=== PATIENT | female | born 1995 | race Caucasian/White ===

== ENCOUNTER 2024-03-26 11:34 | Emergency (ER) | payer MEDICAID ==
[~2024-03-26] VITALS: Ht 167.6 cm; Wt 102.3 kg
[2024-03-26 11:45] VITALS: TEMP 98.6
[2024-03-26] MEDS ORDERED: LR 1,000 ML IV ONE (14:15)
[2024-03-26] MEDS ORDERED: Ondansetron 4 MG/2 ML VIAL IV ONE (14:15)
[2024-03-26] MEDS ORDERED: Morphine 4 MG/ML VIAL IV ONE (14:15)
[2024-03-26 14:35] LABS: URINE APPEARANCE CLEAR (CLEAR/HAZY); URINE COLOR YELLOW (YELLOW); URINE PROTEIN(semi-quant) Negative (NEGATIVE)
[2024-03-26 14:36] LABS: URINE BLOOD Negative (NEGATIVE); URINE GLUCOSE Negative (NEGATIVE); URINE KETONE Negative (NEGATIVE); URINE NITRATE Negative (NEGATIVE); URINE UROBILINOGEN 0.2 E.U/dL (0.2-1.0)
[2024-03-26 14:37] LABS: COLLECTION METHOD CLEAN CATCH
[2024-03-26 14:50] LABS: BASO % 0.4 % (0.0-2.0); EOS # 0.2 K/mm3 (0.0-0.7); GRAN # 6.2 K/mm3 (1.4-6.5); GRAN % 60.9 % (42.2-75.2); HEMATOCRIT 41.3 % (37.0-47.0); HEMOGLOBIN 13.3 g/dl (12.5-16.0); LYMPH # 3.1 K/mm3 (1.2-3.4); LYMPH % 30.6 % (20.0-51.0); MEAN CELL VOLUME 82 fl (80.0-100.0); MEAN CORPUSCULAR HEMOGLOBIN 26 pg (27-31); MEAN CORPUSCULAR HGB CONC 32 g/dl (33.0-37.0); MEAN PLATELET VOLUME 8.8 fl (7.4-10.4); MONO # 0.6 K/mm3 (0.1-0.6); MONO % 5.8 % (1.7-9.3); PLATELET COUNT 417 K/mm3 (130-400); RED BLOOD COUNT 5.07 M/mm3 (4.10-5.30); REDCELL DISTRIBUTION WIDTH-CV 15.4 % (11.5-14.5)
[2024-03-26 15:10] LABS: ALBUMIN 3.8 g/dL (3.5-5.0); BILIRUBIN,TOTAL 0.4 mg/dL (0.2-1.2); C-REACTIVE PROTEIN 1.25 mg/dL (0.00-0.50); CALCIUM 9.6 mg/dL (8.4-10.2); CREATININE, serum 0.71 mg/dL (0.57-1.11); POTASSIUM 3.9 mEq/L (3.5-4.5)
[2024-03-26] MEDS ORDERED: HYDROmorphone 0.5 MG/0.5 ML SYRINGE IV ONE (15:45)
[2024-03-26] MEDS ORDERED: Iohexol 300 - 100 ML VIAL IV ONE (15:59)
[2024-03-26] MEDS ORDERED: NS 100 ML IV SCH (16:00)
[2024-03-26] MEDS ORDERED: NORCO 325 MG-51 TAB PO (16:52)
[2024-03-26 17:13] VITALS: BP 113/69; PULSE 64
== END 2024-03-26 17:13 | disposition home or self-care (01) ==
LOC: COL.ER 11:34
PROVIDERS: Family Medicine
DX: N83.209 Unspecified ovarian cyst, unspecified side (principal)
CPT/HCPCS: J1170; J2270; J2405; J7120; Q9967

== ENCOUNTER 2024-06-14 08:17 | Emergency (ER) | payer MEDICAID ==
[~2024-06-14] VITALS: Ht 167.6 cm; Wt 99.1 kg
[~2024-06-14 08:17] MED LIST: NORCO 325 MG-51 TAB PO
[2024-06-14 08:21] VITALS: TEMP 98.1
[2024-06-14] MEDS ORDERED: NS 1,000 ML IV ONE (08:45)
[2024-06-14] MEDS ORDERED: fentaNYL 50 MCG/ML 2 ML VIAL IV ONE ×2 (08:45→10:15)
[2024-06-14] MEDS ORDERED: Ondansetron 4 MG/2 ML VIAL IV ONE ×2 (08:45→13:30)
[2024-06-14 08:55] LABS: BASO % 0.3 % (0.0-2.0); EOS # 0.2 K/mm3 (0.0-0.7); EOS % 1.6 % (0.0-4.0); HEMATOCRIT 47.1 % (37.0-47.0); HEMOGLOBIN 15.4 g/dl (12.5-16.0); LYMPH # 2.6 K/mm3 (1.2-3.4); LYMPH % 20.5 % (20.0-51.0); MEAN CELL VOLUME 83 fl (80.0-100.0); MEAN CORPUSCULAR HEMOGLOBIN 27 pg (27-31); MEAN CORPUSCULAR HGB CONC 33 g/dl (33.0-37.0); MEAN PLATELET VOLUME 9.1 fl (7.4-10.4); MONO # 0.8 K/mm3 (0.1-0.6); MONO % 6.3 % (1.7-9.3); PLATELET COUNT 537 K/mm3 (130-400); RED BLOOD COUNT 5.69 M/mm3 (4.10-5.30); REDCELL DISTRIBUTION WIDTH-CV 15.7 % (11.5-14.5)
[2024-06-14 09:16] LABS: ALBUMIN 4.4 g/dL (3.5-5.0); BILIRUBIN,TOTAL 0.5 mg/dL (0.2-1.2); CALCIUM 10.4 mg/dL (8.4-10.2); CREATININE, serum 0.85 mg/dL (0.57-1.11); TOTAL PROTEIN 9.5 g/dl (6.2-8.1)
[2024-06-14] MEDS ORDERED: Iohexol 300 - 100 ML VIAL IV ONE (09:32)
[2024-06-14] MEDS ORDERED: NS 100 ML IV SCH (09:32)
[2024-06-14 12:41] LABS: COLLECTION METHOD CLEAN CATCH
[2024-06-14 12:46] LABS: URINE APPEARANCE CLEAR (CLEAR/HAZY); URINE BLOOD NEGATIVE (NEGATIVE); URINE COLOR YELLOW (YELLOW); URINE GLUCOSE NEGATIVE (NEGATIVE); URINE KETONE 2+ (NEGATIVE); URINE NITRATE NEGATIVE (NEGATIVE); URINE PROTEIN(semi-quant) TRACE (NEGATIVE); URINE UROBILINOGEN 0.2 E.U/dL (0.2-1.0)
[2024-06-14] MEDS ORDERED: ZOFRAN ODT4 MG PO (13:30)
[2024-06-14] MEDS ORDERED: NORCO 325 MG-51 TAB PO (13:30)
[2024-06-14 13:32] VITALS: BP 109/75; PULSE 77
== END 2024-06-14 13:49 | disposition home or self-care (01) ==
LOC: COL.ER 08:17
PROVIDERS: Family Medicine
DX: R10.31 Right lower quadrant pain (principal)
CPT/HCPCS: J2405; J3010; J7030; Q9967

== ENCOUNTER 2024-07-19 11:17 | Emergency (ER) | payer MEDICAID ==
[~2024-07-19] VITALS: Ht 167.6 cm; Wt 96.8 kg
[~2024-07-19 11:17] MED LIST changes: +ZOFRAN ODT4 MG PO
[2024-07-19 11:32] VITALS: BP 110/74; TEMP 98.7
[2024-07-19] MEDS ORDERED: Home HYDROcodone/Acetaminophen 5/325 MG #4 TABS/PACK PO ONE (12:45)
[2024-07-19 13:05] VITALS: PULSE 79
== END 2024-07-19 13:05 | disposition home or self-care (01) ==
LOC: COL.ER 11:17
DX: S99.922A Unspecified injury of left foot, initial encounter (principal); W17.89XA Other fall from one level to another, initial encounter; Y93.39 Activity, other involving climbing, rappelling and jumping off